=== PATIENT | male | born 1965 | race Caucasian/White ===

== ENCOUNTER → 2018-07-24 | Outpatient (CLI) | payer BC, OTHER ==
[~2018-07-24] MED LIST: ASPI-496 PO; ATOR-2 PO; ATOR10TA9 PO; CARV12.52 PO; ESCI20TA10 PO; LISI-167 PO; REGADENOSON 0.4 MG/5 ML SYRINGE ONE; SPIR25TA5 PO; TICA90TA PO
== END | disposition home or self-care (01) ==
LOC: CFH 13:01
PROVIDERS: ATTEND Internal Medicine Cardiovascular Disease
DX: Z01.810 Encounter for preprocedural cardiovascular examination (principal)
CPT/HCPCS: 78452; 93017; A9502; J2785

== ENCOUNTER 2018-07-27 08:19 | Day surgery (SDC) | payer OTHER ==
[2018-07-26 12:08] VITALS: BP 104/84
[2018-07-26 12:35] LABS: BASOPHILS # (AUTO) 0.02 x10^3/uL (0-0.1); BASOPHILS % (AUTO) 0 % (0-1); EOSINOPHILS # (AUTO) 0.22 x10^3/uL (0-0.4); EOSINOPHILS % (AUTO) 3 % (1-7); LYMPHOCYTES # (AUTO) 1.82 x10^3/uL (1-3.4); LYMPHOCYTES % (AUTO) 25 % (22-44); MD NO; MEAN CORPUSCULAR HEMOGLOBIN 25.5 pg (27.5-34.5); MEAN CORPUSCULAR HGB CONC 32.5 g/dL (33.2-36.2); MEAN CORPUSCULAR VOLUME 78.4 fL (81-97); MONOCYTES # (AUTO) 0.88 x10^3/uL (0.2-0.8); MONOCYTES % (AUTO) 12 % (2-9); NEUTROPHILS # (AUTO) 4.31 x10^3/uL (1.8-6.8); NEUTROPHILS % (AUTO) 59 % (42-75); PLATELET COUNT 257 x10^3/uL (130-400); RED BLOOD COUNT 6.82 x10^6/uL (4.38-5.82); RED CELL DISTRIBUTION WIDTH 21.5 % (9.4-14.8)
[2018-07-26 12:37] LABS: INTERNATIONAL NORMALIZED RATIO 0.97 (0.93-1.1); PROTHROMBIN TIME 10.2 Seconds (9.6-11.5)
[2018-07-26 12:38] LABS: CALCIUM 9.1 mg/dL (8.5-10.1); CHLORIDE 102 mmol/L (98-107); CREATININE 1.29 mg/dL (0.7-1.3)
[2018-07-26 12:49] LABS: ANION GAP 6 mmol/L (5-15)
[~2018-07-27] VITALS: Ht 172.7 cm; Wt 100.0 kg
[~2018-07-27 08:19] MED LIST changes: -ATOR-2 PO; -REGADENOSON 0.4 MG/5 ML SYRINGE ONE
[2018-07-27] MEDS ORDERED: ATOR-2 PO (10:01)
[2018-07-27] MEDS ORDERED: MIDAZOLAM 1 MG/ML, 2ML ONE ×2 (10:37→11:04)
[2018-07-27] MEDS ORDERED: LIDOCAINE 1%, 20ML ONE (10:38)
[2018-07-27] MEDS ORDERED: FENTANYL PF 100 MCG/2ML ONE (10:38)
== END 2018-07-27 14:30 | disposition home or self-care (01) ==
LOC: CACL 08:19
PROVIDERS: ATTEND Internal Medicine Cardiovascular Disease
DX: I25.10 Atherosclerotic heart disease of native coronary artery without angina pectoris (principal); I10 Essential (primary) hypertension; E78.5 Hyperlipidemia, unspecified; I25.2 Old myocardial infarction; I42.9 Cardiomyopathy, unspecified; Z79.82 Long term (current) use of aspirin; Z98.61 Coronary angioplasty status; Z79.01 Long term (current) use of anticoagulants
CPT/HCPCS: 36415; 80048; 85025; 85610; 85730; 93458; 99156; C1760; C1769; C1894; J2250; J3010; J3490; Q9967

== ENCOUNTER 2018-08-17 09:17 | Inpatient (IN) | payer OTHER ==
[2018-08-15 16:29] LABS: BASOPHILS # (AUTO) 0.04 x10^3/uL (0-0.1); BASOPHILS % (AUTO) 1 % (0-1); EOSINOPHILS # (AUTO) 0.21 x10^3/uL (0-0.4); EOSINOPHILS % (AUTO) 3 % (1-7); LYMPHOCYTES # (AUTO) 2.33 x10^3/uL (1-3.4); LYMPHOCYTES % (AUTO) 28 % (22-44); MD NO; MEAN CORPUSCULAR HEMOGLOBIN 25.8 pg (27.5-34.5); MEAN CORPUSCULAR VOLUME 80.6 fL (81-97); MEAN PLATELET VOLUME 7.9 fL (7.4-10.4); MONOCYTES # (AUTO) 1.09 x10^3/uL (0.2-0.8); MONOCYTES % (AUTO) 13 % (2-9); NEUTROPHILS # (AUTO) 4.51 x10^3/uL (1.8-6.8); NEUTROPHILS % (AUTO) 55 % (42-75); PLATELET COUNT 260 x10^3/uL (130-400); RED BLOOD COUNT 6.45 x10^6/uL (4.38-5.82); RED CELL DISTRIBUTION WIDTH 20.5 % (9.4-14.8)
[2018-08-15 16:34] LABS: INTERNATIONAL NORMALIZED RATIO 0.98 (0.93-1.1); PROTHROMBIN TIME 10.3 Seconds (9.6-11.5)
[2018-08-15 16:39] LABS: ALANINE AMINOTRANSFERASE 38 U/L (12-78); ALBUMIN 3.9 g/dL (3.4-5.0); ANION GAP 4 mmol/L (5-15); CALCIUM 8.4 mg/dL (8.5-10.1); CHLORIDE 105 mmol/L (98-107)
[2018-08-15 16:41] LABS: ALKALINE PHOSPHATASE 69 U/L (45-117); BILIRUBIN,TOTAL 0.2 mg/dL (0.2-1.0); CREATININE 1.19 mg/dL (0.7-1.3)
[2018-08-15 16:48] LABS: HEMOGLOBIN A1C 6.1 % (4.2-6.3)
[~2018-08-17] VITALS: Ht 172.7 cm; Wt 103.0 kg
[~2018-08-17 09:17] MED LIST changes: +ATOR-2 PO; +EPINEPHRINE 1 MG/ML, 1ML ONE; +KETOROLAC 60 MG/2 ML ONE; +LISI-170 PO; +ROPIvacaine/PF 0.5%, 30 ML ONE; +SODIUM CHLORIDE 0.9% 50 ML ONE; +TRANEXAMIC ACID 100 MG/ML, 10ML ONE; +VANCOMYCIN 1,000 MG ONE
[2018-08-17 09:49] VITALS: BP_SYST 142; BP_SYST 148; BP_DIAS 103; BP_DIAS 94
[2018-08-17] MEDS ORDERED: LACTATED RINGERS 1,000 ML IV SCH (10:03)
[2018-08-17] MEDS ORDERED: FENTANYL PF 100 MCG/2ML ONE ×3 (10:25)
[2018-08-17] MEDS ORDERED: MIDAZOLAM 1 MG/ML, 2ML ONE (10:25)
[2018-08-17] MEDS ORDERED: ROCURONIUM 10 MG/ML,10ML ONE (11:25)
[2018-08-17] MEDS ORDERED: PROPOFOL 10 MG/ML, 20ML ONE (11:25)
[2018-08-17] MEDS ORDERED: METOPROLOL 1 MG/ML, 5ML ONE (11:25)
[2018-08-17] MEDS ORDERED: DEXAMETHASONE 4 MG/ML, 1ML ONE (11:25)
[2018-08-17] MEDS ORDERED: NEOSTIGMINE 1 MG/ML, 10ML ONE (11:25)
[2018-08-17] MEDS ORDERED: ONDANSETRON 2MG/ML, 2ML ONE (11:25)
[2018-08-17] MEDS ORDERED: GLYCOPYRROLATE 0.2MG/1ML, 5ML ONE (11:25)
[2018-08-17] MEDS ORDERED: CEFAZOLIN 1,000 MG ONE (11:25)
[2018-08-17] MEDS ORDERED: SUGAMMADEX 200 MG/2 ML IVPush ONE (11:25)
[2018-08-17] MEDS ORDERED: hydrALAzine 20 MG/ML, 1ML IV PRN (12:00)
[2018-08-17] MEDS ORDERED: DIAZEPAM 5 MG/ML, 2ML IVPush PRN (12:00)
[2018-08-17] MEDS ORDERED: PROMETHAZINE 25 MG/ML, 1ML IV PRN (12:00)
[2018-08-17] MEDS ORDERED: FENTANYL PF 100 MCG/2ML IV PRN (12:00)
[2018-08-17] MEDS ORDERED: ALBUTEROL SULFATE 2.5 MG/3 ML NPPB PRN (12:00)
[2018-08-17] MEDS ORDERED: HYDROmorphone 2 MG/ML, 1ML IVPush PRN (12:00)
[2018-08-17] MEDS ORDERED: OXYcodone 5 MG/5 ML ORAL.SOL UDC PO PRN (12:00)
[2018-08-17] MEDS ORDERED: LABETALOL 5MG/ML, 20ML IV PRN (12:00)
[2018-08-17] MEDS ORDERED: HYDROcodone/APAP 5/325 TABLET PO PRN (12:30)
[2018-08-17] MEDS ORDERED: DIPHENHYDRAMINE 50 MG CAPSULE PO PRN (12:30)
[2018-08-17] MEDS ORDERED: ONDANSETRON 4 MG TABLET PO PRN (12:30)
[2018-08-17] MEDS ORDERED: SENNA/DOCUSATE TABLET PO PRN (12:30)
[2018-08-17] MEDS ORDERED: ACETAMINOPHEN 650 MG/20.3 ML UDC PO PRN (12:30)
[2018-08-17] MEDS ORDERED: MAGNESIUM HYDROXIDE 8%, 30ML UDC PO PRN (12:30)
[2018-08-17] MEDS ORDERED: SCOPOLAMINE PATCH, 1.5MG PATCH.TD72 TD ONE (12:30)
[2018-08-17] MEDS ORDERED: ZOLPIDEM 5MG TABLET PO PRN (12:30)
[2018-08-17] MEDS ORDERED: BISACODYL 10 MG SUPP PR PRN (12:30)
[2018-08-17] MEDS ORDERED: ONDANSETRON 2MG/ML, 2ML IV PRN (12:30)
[2018-08-17] MEDS ORDERED: hydrALAzine 20 MG/ML, 1ML ONE (13:14)
[2018-08-17] MEDS ORDERED: MEPERIDINE/PF 25MG/ML,1ML ONE (13:14)
[2018-08-17] MEDS: MEPERIDINE/PF 25MG/0.5ML IVPush PRN ×3 (13:22→14:00)
[2018-08-17] MEDS ORDERED: TRANEXAMIC ACID 1,000 MG in SODIUM CHLORIDE 0.9% 100 ML IVPB ONE (14:30)
[2018-08-17] MEDS ORDERED: TRANEXAMIC ACID 100 MG/ML, 10ML IV ONE (14:30)
[2018-08-17 15:15] VITALS: BP 115/78
[2018-08-17] MEDS: OXYcodone IR 5MG TABLET PO PRN ×2 (17:36→21:14)
[2018-08-17] MEDS: ASPIRIN 81 MG TABLET EC PO SCH (17:36)
[2018-08-17] MEDS: NS + 20MEQ KCL 1,000 ML IV SCH (19:30)
[2018-08-17 20:35] VITALS: BP 132/73
[2018-08-17] MEDS: DOCUSATE 100 MG CAPSULE PO SCH (20:53)
[2018-08-17] MEDS: CARVEDILOL 12.5 MG TABLET PO SCH (20:54)
[2018-08-17] MEDS: CEFAZOLIN PMX 2GM/50ML 50 ML IVPB SCH (20:57)
[2018-08-17] MEDS ORDERED: ATORVASTATIN 80 MG TABLET PO SCH (21:00)
[2018-08-17] MEDS: TICAGRELOR 90 MG TABLET PO SCH (21:00)
[2018-08-18] MEDS: OXYcodone IR 5MG TABLET PO PRN ×4 (01:03→13:20)
[2018-08-18 01:05] VITALS: BP 144/84
[2018-08-18] MEDS: CEFAZOLIN PMX 2GM/50ML 50 ML IVPB SCH (03:36)
[2018-08-18 04:51] VITALS: BP 113/71
[2018-08-18] MEDS: ASPIRIN 81 MG TABLET EC PO SCH (05:17)
[2018-08-18] MEDS ORDERED: DEXAMETHASONE 4 MG/ML, 1ML IVPush SCH (06:00)
[2018-08-18 08:00] VITALS: BP 125/98
[2018-08-18] MEDS: NS + 20MEQ KCL 1,000 ML IV SCH (08:00)
[2018-08-18] MEDS ORDERED: LISINOPRIL 20 MG TABLET PO SCH (09:00)
[2018-08-18] MEDS ORDERED: SPIRONOLACTONE 25 MG TABLET PO SCH (09:00)
[2018-08-18] MEDS: TICAGRELOR 90 MG TABLET PO SCH (10:00)
[2018-08-18] MEDS: DOCUSATE 100 MG CAPSULE PO SCH (10:00)
[2018-08-18] MEDS: CARVEDILOL 12.5 MG TABLET PO SCH (10:00)
[2018-08-18] MEDS ORDERED: OXYC5CAP2 PO (13:17)
[2018-08-18] MEDS ORDERED: TRAM50TA2 PO (13:18)
[2018-08-18] MEDS ORDERED: ASPI-496 PO (13:19)
[2018-08-18] MEDS ORDERED: MELO7.5T5 PO (13:19)
[2018-08-18] MEDS ORDERED: ACET325C5 PO (13:20)
[2018-08-18] MEDS ORDERED: DOCU-131 PO (13:20)
== END 2018-08-18 13:50 | disposition home or self-care (01) | DRG 470 ==
LOC: ORIP 09:17 → 4NOR 14:59
PROVIDERS: ADMIT Orthopaedic Surgery; ATTEND Orthopaedic Surgery
PROC: 0SRB06A Replacement of Left Hip Joint with Oxidized Zirconium on Polyethylene Synthetic Substitute, Uncemented, Open Approach (ICD-10-PCS; principal; 2018-08-17 12:00)
DX: M16.12 Unilateral primary osteoarthritis, left hip (principal); I25.10 Atherosclerotic heart disease of native coronary artery without angina pectoris; Z88.8 Allergy status to other drugs, medicaments and biological substances; Z87.891 Personal history of nicotine dependence; Z95.5 Presence of coronary angioplasty implant and graft
CPT/HCPCS: 36415; 72170; 73501; 76000; J3490; 80053; 83036; 85014; 85018; 85025; 85610; 85730; 87081; 93005; C1713; G0378; J0171; J0690; J1100; J1885; J2175; J2250; J2405; J2704; J2710; J2795; J3010; J3370; C1776; J0360; J7120